=== PATIENT | male | born 1950 | race Caucasian/White ===

== ENCOUNTER 2021-07-12 00:03 | Emergency (ER) | payer OTHER ==
[~2021-07-12] VITALS: Ht 175.3 cm; Wt 68.0 kg
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
[2021-07-12] MEDS ORDERED: CELEXA 10 MG TA10 M1 PO (00:17)
[2021-07-12] MEDS ORDERED: LAMOTRIGINE250 MG PO (00:17)
[2021-07-12] MEDS ORDERED: LISINOPRIL10 MG PO (00:17)
[2021-07-12 00:37] LABS: ABSOLUTE NEUTROPHILS 5.2 thou/uL (1.4-8.2); BASOPHILS 0.9 % (0.0-2.0); EOSINOPHILS 2.1 % (0.0-3.0); HEMATOCRIT 35.9 % (42.0-52.0); HEMOGLOBIN 12.4 gm/dL (14.0-18.0); LYMPHOCYTES 17.1 % (24.0-44.0); MCH 34.2 pg (26.0-34.0); MCHC 34.6 g/dL (28.0-37.0); MONOCYTES 7.9 % (1.0-8.0); PLATELET COUNT 285 thou/uL (150-400); RBC 3.63 mil/uL (4.50-6.00); WBC 7.3 thou/uL (4.0-11.0)
[2021-07-12 00:40] LABS: CREATININE 0.7 mg/dL (0.7-1.3); POTASSIUM 3.4 mmol/L (3.5-5.1)
[2021-07-12 00:50] LABS: ALBUMIN 2.8 g/dL (3.4-5.0); TOTAL BILIRUBIN 0.2 mg/dL (0.2-1.0); TOTAL PROTEIN 5.7 g/dL (6.4-8.2)
[2021-07-12 01:27] LABS: URINE BILIRUBIN NEGATIVE (Negative); URINE BLOOD TRACE (Negative); URINE CLARITY CLEAR; URINE COLOR YELLOW; URINE GLUCOSE-RANDOM* NEGATIVE (Negative); URINE KETONES NEGATIVE (Negative); URINE LEUKOCYTES-REFLEX NEGATIVE (Negative); URINE NITRITE-REFLEX NEGATIVE (Negative); URINE PROTEIN (DIPSTICK) NEGATIVE (Negative); URINE SPECIFIC GRAVITY 1.015 (1.005-1.035); URINE UROBILINOGEN 0.2 E.U./dl (0.2-1.0)
[2021-07-12 01:35] LABS: AMP/METHAMP Negative (Negative); BARBITURATES Negative (Negative); BENZODIAZEPINES Negative (Negative); COCAINE Negative (Negative); METHADONE Negative (Negative); OPIATES Negative (Negative); PCP Negative (Negative)
[2021-07-12 02:50] VITALS: BP 137/85
--- NOTE | 2021-07-12 07:25 | EKG ---
[address] [address] [place] [address] ELECTROCARDIOGRAM REPORT Name: MATT EPSTEIN Room #: DEP Heather#: [id number] Admission: 07/12/21 Attend Phys: Discharge: 07/12/21 Date of : 54 Report #: [id number] [facility] ED Test Date: 2021-07-12 Test Time: 00:16:33 Pat Name: MATT EPSTEIN Department: Room: Gender: M [employer]ologist [employer]: mpark : 1950 Requested By: Alton Mensah Order Number: [id number] MD: Ger Storm Measurements Intervals [place] Rate: 92 P: 42 FL: 160 QRS: -12 QRSD: 106 T: 52 QT: 383 QTc: 474 Interpretive Statements Sinus rhythm Probable left atrial enlargement Abnormal R-wave progression, early transition No previous ECG available for comparison Electronically Signed On 07-12-2021 7:25:26 [employer] by Ger Storm [email or web address] <ELECTRONICALLY SIGNED> By: Ger Storm MD, [facility] 07/12/21 0725 0016 0016 Ger Storm MD, FACC /EPI
== END 2021-07-12 02:51 | disposition home or self-care (01) ==
LOC: ER 00:03
PROVIDERS: Emergency Medicine
DX: R53.81 Other malaise (principal); F17.200 Nicotine dependence, unspecified, uncomplicated; Z86.16 Personal history of COVID-19; Z79.891 Long term (current) use of opiate analgesic; Z79.899 Other long term (current) drug therapy; Z91.09 Other allergy status, other than to drugs and biological substances